=== PATIENT | female | born 1950 | race Caucasian/White ===

== ENCOUNTER 2017-09-28 11:38 | Inpatient (IN) | payer OTHER, MEDICAID ==
[~2017-09-28] VITALS: Ht 160 cm; Wt 65.5 kg
[~2017-09-28 11:38] MED LIST: APAP/HYDROCODON1 T13 PO; ASPIRIN; ATENOLOL25 MG PO; COL100 PO; GOOD SENSE ASPI81 M3 PO; NITRO
[2017-09-28 11:52] VITALS: Ht 160 cm; Wt 65.5 kg
[2017-09-28 12:44] LABS: BASOPHIL % 0.4 % (0-2); PLATELET COUNT 169 x10^3mcL (130-400)
[2017-09-28 12:51] LABS: CALCIUM 8.9 mg/dL (8.5-10.1); CARBON DIOXIDE 29.2 mmol/L (21-32); CHLORIDE SERUM 106 mmol/L (98-107); CREATININE SERUM 0.5 mg/dL (0.6-1.0); GFR1 > 60 mL/min; GLUCOSE SERUM 101 mg/dL (74-106); POTASSIUM SERUM 3.6 mmol/L (3.5-5.1); SODIUM SERUM 142 mmol/L (136-145)
[2017-09-28 12:56] LABS: ALKALINE PHOSPHATASE 104 U/L (46-116); ALT/SGPT 21 U/L (14-59); AST/SGOT 13 U/L (15-37); BILIRUBIN TOTAL 0.5 mg/dL (0.20-1.00); TOTAL PROTEIN, SERUM 6.6 g/dL (6.4-8.2)
[2017-09-28 14:10] LABS: T3 TOTAL 1.21 ng/mL
[2017-09-28 14:13] LABS: FREE T4 0.99 ng/dL (0.76-1.46); FREE THYROXINE INDEX 2.2 ug/dL (1.4-4.5); T4(THYROXINE) 6.4 ug/dL (4.7-13.3)
[2017-09-28 14:23] LABS: CHOLESTEROL/HDL RATIO 5.2; MAGNESIUM 2.2 mg/dL (1.8-2.4); PHOSPHOROUS 4.2 mg/dL (2.5-4.9)
[2017-09-28 15:20] VITALS: BP 151/68
[2017-09-28 16:12] LABS: microscopic required? NO
[2017-09-28 16:17] LABS: urine erythrocyte NEGATIVE (NEGATIVE)
[2017-09-28 21:28] VITALS: BP 126/55
[2017-09-29 05:32] VITALS: BP 109/51
[2017-09-29 09:17] VITALS: BP 124/55
[2017-09-29 11:10] VITALS: BP 124/55
== END 2017-09-29 14:55 | disposition home or self-care (01) | DRG 205 ==
LOC: ED 11:38 → DU 12:42
PROVIDERS: Emergency Medicine; Family Medicine
DX: M94.0 Chondrocostal junction syndrome [Tietze] (principal); N17.0 Acute kidney failure with tubular necrosis; I10 Essential (primary) hypertension; Z63.4 Disappearance and death of family member
CPT/HCPCS: 83880; 84439; J1885; J7030; Q0092

== ENCOUNTER 2018-02-06 18:37 | Inpatient (IN) | payer OTHER, MEDICAID ==
[~2018-02-06] VITALS: Ht 165.1 cm; Wt 64.5 kg
[2018-02-06 19:45] LABS: CALCIUM 9.2 mg/dL (8.5-10.1); CARBON DIOXIDE 28.5 mmol/L (21-32); CHLORIDE SERUM 106 mmol/L (98-107); CREATININE SERUM 0.6 mg/dL (0.6-1.0); GFR1 > 60 mL/min; GLUCOSE SERUM 115 mg/dL (74-106); POTASSIUM SERUM 3.7 mmol/L (3.5-5.1); SODIUM SERUM 141 mmol/L (136-145)
[2018-02-06 19:49] LABS: ALBUMIN 3.9 g/dL (3.4-5.0); ALKALINE PHOSPHATASE 108 U/L (46-116); ALT/SGPT 19 U/L (14-59); AST/SGOT 24 U/L (15-37); BASOPHIL % 0.3 % (0-2); LIPASE 131 IU/L (73-393); PLATELET COUNT 179 x10^3mcL (130-400); RED CELL DISTRIBUTION WIDTH 13.7 % (11.5-14.5); TOTAL PROTEIN, SERUM 6.7 g/dL (6.4-8.2)
[2018-02-06] MEDS ORDERED: ATENOLOL50 MG PO (20:47)
[2018-02-06] MEDS ORDERED: HYDROCHLOROTHIA25 MG PO (20:48)
[2018-02-06] MEDS ORDERED: VITAMIN D50000 I4 PO (20:48)
[2018-02-06 21:26] VITALS: BP 153/77
[2018-02-06 21:49] LABS: PHOSPHOROUS 3.6 mg/dL (2.5-4.9)
[2018-02-06] MEDS ORDERED: ATENOLOL25 MG PO (21:51)
[2018-02-06 21:58] LABS: CHOLESTEROL/HDL RATIO 5.9
[2018-02-06 22:22] VITALS: BP 153/77
[2018-02-07 05:07] VITALS: BP 115/56
[2018-02-07 05:49] LABS: BASOPHIL % 0.3 % (0-2); PLATELET COUNT 158 x10^3mcL (130-400); RED CELL DISTRIBUTION WIDTH 13.7 % (11.5-14.5)
[2018-02-07 05:52] LABS: CALCIUM 8.7 mg/dL (8.5-10.1); CARBON DIOXIDE 30.1 mmol/L (21-32); CHLORIDE SERUM 107 mmol/L (98-107); CREATININE SERUM 0.5 mg/dL (0.6-1.0); GFR1 > 60 mL/min; GLUCOSE SERUM 96 mg/dL (74-106); POTASSIUM SERUM 3.1 mmol/L (3.5-5.1); SODIUM SERUM 142 mmol/L (136-145)
[2018-02-07 07:27] LABS: T3 TOTAL 0.99 ng/mL
[2018-02-07 07:33] LABS: microscopic required? NO
[2018-02-07 08:21] LABS: FREE T4 0.91 ng/dL (0.76-1.46); FREE THYROXINE INDEX 2.5 ug/dL (1.4-4.5); T4(THYROXINE) 6.6 ug/dL (4.7-13.3)
[2018-02-07 08:21] LABS: AMPHETAMINE QUAL UR NONE DETECTED (See below)
[2018-02-07 08:32] VITALS: BP 110/56
[2018-02-07 08:44] LABS: urine erythrocyte NEGATIVE (NEGATIVE)
[2018-02-07] MEDS ORDERED: PRI20 PO (13:37)
[2018-02-07] MEDS ORDERED: LIPI20 PO (14:23)
== END 2018-02-07 18:15 | disposition home or self-care (01) | DRG 391 ==
LOC: ED 18:37 → DU 20:36
PROVIDERS: Emergency Medicine; Internal Medicine
DX: K21.9 Gastro-esophageal reflux disease without esophagitis (principal); N17.0 Acute kidney failure with tubular necrosis; I10 Essential (primary) hypertension; E78.5 Hyperlipidemia, unspecified; E87.6 Hypokalemia
CPT/HCPCS: 83880; 84439; J7030; J7620; Q0092

== ENCOUNTER 2018-07-28 18:08 | Emergency (ER) | payer OTHER, MEDICAID ==
[~2018-07-28] VITALS: Ht 160 cm; Wt 66.4 kg
[~2018-07-28 18:08] MED LIST changes: +ATENOLOL50 MG PO; +HYDROCHLOROTHIA25 MG PO; +LIPI20 PO; +PRI20 PO; +VITAMIN D50000 I4 PO
[2018-07-28 18:17] VITALS: Ht 160 cm; Wt 66.4 kg
[2018-07-28 20:33] LABS: BASOPHIL % 0.3 % (0-2); PLATELET COUNT 163 x10^3mcL (130-400); RED CELL DISTRIBUTION WIDTH 14.3 % (11.5-14.5)
[2018-07-28 20:41] LABS: CALCIUM 9.2 mg/dL (8.5-10.1); CARBON DIOXIDE 27.4 mmol/L (21-32); CHLORIDE SERUM 106 mmol/L (98-107); CREATININE SERUM 0.8 mg/dL (0.6-1.0); GFR1 > 60 mL/min; GLUCOSE SERUM 119 mg/dL (74-106); POTASSIUM SERUM 3.4 mmol/L (3.5-5.1); SODIUM SERUM 141 mmol/L (136-145)
[2018-07-28 20:46] LABS: ALKALINE PHOSPHATASE 96 U/L (46-116); ALT/SGPT 17 U/L (14-59); AST/SGOT 11 U/L (15-37); BILIRUBIN TOTAL 0.4 mg/dL (0.20-1.00); TOTAL PROTEIN, SERUM 6.9 g/dL (6.4-8.2)
[2018-07-28 21:29] VITALS: BP 132/75
== END 2018-07-28 21:34 | disposition home or self-care (01) ==
LOC: ED 18:08
PROVIDERS: Emergency Medicine
DX: R07.89 Other chest pain (principal)
CPT/HCPCS: 36415; 83880; Q0092

== ENCOUNTER 2019-04-22 05:50 | Emergency (ER) | payer OTHER, MEDICAID ==
[~2019-04-22] VITALS: Ht 154.9 cm; Wt 64.4 kg
[2019-04-22 06:09] VITALS: Ht 154.9 cm; Wt 64.4 kg
[2019-04-22] MEDS ORDERED: ATENOLOL50 MG PO (06:15)
[2019-04-22] MEDS ORDERED: ASPIR 8181 MG PO (06:16)
[2019-04-22 07:09] LABS: BASOPHIL % 0.4 % (0-2); PLATELET COUNT 177 x10^3mcL (130-400); RED CELL DISTRIBUTION WIDTH 13.5 % (11.5-14.5)
[2019-04-22 07:27] LABS: CALCIUM 8.8 mg/dL (8.5-10.1); CARBON DIOXIDE 27.7 mmol/L (21-32); CHLORIDE SERUM 106 mmol/L (98-107); CREATININE SERUM 0.6 mg/dL (0.6-1.0); GFR1 > 60 mL/min; GLUCOSE SERUM 123 mg/dL (74-106); POTASSIUM SERUM 3.7 mmol/L (3.5-5.1); SODIUM SERUM 143 mmol/L (136-145)
[2019-04-22 07:32] LABS: ALKALINE PHOSPHATASE 102 U/L (46-116); ALT/SGPT 13 U/L (14-59); AST/SGOT 11 U/L (15-37); BILIRUBIN TOTAL 0.32 mg/dL (0.20-1.00); TOTAL PROTEIN, SERUM 7.2 g/dL (6.4-8.2)
[2019-04-22 07:50] VITALS: BP 123/73
== END 2019-04-22 07:50 | disposition home or self-care (01) ==
LOC: ED 05:50
PROVIDERS: Specialist
DX: I10 Essential (primary) hypertension (principal); Z90.710 Acquired absence of both cervix and uterus
CPT/HCPCS: 36415

== ENCOUNTER 2020-04-19 12:09 | Emergency (ER) | payer OTHER, MEDICAID ==
[~2020-04-19] VITALS: Ht 160 cm; Wt 62.6 kg
[~2020-04-19 12:09] MED LIST changes: +ASPIR 8181 MG PO
[2020-04-19 12:24] VITALS: Ht 160 cm; Wt 62.6 kg
[2020-04-19 13:51] VITALS: BP 122/55
== END 2020-04-19 13:51 | disposition home or self-care (01) ==
LOC: ED 12:09
DX: H11.31 Conjunctival hemorrhage, right eye (principal); I10 Essential (primary) hypertension; Z98.890 Other specified postprocedural states; Z90.710 Acquired absence of both cervix and uterus